=== PATIENT | female | born 1995 | race Caucasian/White ===

== ENCOUNTER 2019-03-04 04:07 | Emergency (ER) | payer OTHER ==
--- NOTE | 2019-03-04 04:13 | NUR ---
BIB BOYFRIEND, C/O PAIN IN HER STOMACH ACCORDING TO BOYFRIEND. PATIENT IS NON RESPONSIVE TO VERBAL COMMANDS BUT RESPONDS TO PAIN STIMULI.
[2019-03-04 04:29] LABS: BASOPHILS % (AUTO) 0.2 % (0.0-2.0); EOSINOPHILS % (AUTO) 0.1 % (0.0-6.0); HEMATOCRIT 39 % (33-45); HEMOGLOBIN 12.8 g/dL (11.5-14.8); LYMPHOCYTES # (AUTO) 1.1 /CMM (0.8-4.8); MEAN CORPUSCULAR HGB CONC 33 g/dl (31.0-36.0); MEAN CORPUSCULAR VOLUME 79 fL (82-100); MONOCYTES # (AUTO) 0.2 /CMM (0.1-1.30); MONOCYTES % (AUTO) 4.2 % (2.0-12.0); NEUTROPHILS # (AUTO) 3.8 /CMM (1.8-8.9); NEUTROPHILS % (AUTO) 74.5 % (43.0-81.0); PLATELET COUNT (AUTO) 152 /CMM (150-450); RED BLOOD CELL COUNT(AUTO) 4.99 MIL/uL (4.0-5.2)
[2019-03-04] MEDS ORDERED: IV NS 0.9% 1,000 ML BAG IV ONE ×2 (04:30→05:30)
[2019-03-04 04:50] LABS: CALCIUM, SERUM 8.7 mg/dL (8.5-10.1); CREATININE 0.8 mg/dL (0.6-1.3); POTASSIUM 3.8 mmol/L (3.5-5.1)
[2019-03-04] MEDS ORDERED: KETOROLAC TROMETHAMINE INJ 30 MG/ML VIAL IV ONE (05:30)
[2019-03-04] MEDS ORDERED: LORAZEPAM INJ 2 MG/ML VIAL IV ONE (05:30)
[2019-03-04] MEDS ORDERED: LORAZEPAM INJ 2 MG/ML VIAL ONE (05:37)
[2019-03-04] MEDS ORDERED: KETOROLAC TROMETHAMINE INJ 30 MG/ML VIAL ONE (05:37)
[2019-03-04 06:53] LABS: ALBUMIN 4.4 g/dL (3.4-5.0); BILIRUBIN,DIRECT 0.1 mg/dL (0.0-0.2); BILIRUBIN,TOTAL 0.3 mg/dL (0.2-1.0); TOTAL PROTEIN, SERUM 7.5 g/dL (6.4-8.2)
--- NOTE | 2019-03-04 07:13 | NUR ---
Patient discharged to home in stable condition vital signs stable. Written and verbal after care instructions given. Patient verbalizes understanding of instruction.IV removed. Catheter intact and site benign. Pressure and 4x4 applied to site. No bleeding noted pt. ambulatory with a steady gait, leaving with boyfriend.
[2019-03-04 07:18] VITALS: BP 115/20
== END 2019-03-04 07:20 | disposition home or self-care (01) ==
LOC: ER 04:11
DX: F10.129 Alcohol abuse with intoxication, unspecified (principal); Y90.6 Blood alcohol level of 120-199 mg/100 ml
CPT/HCPCS: 36415; 80048; 80076; 80307; 83690; 84702; 85025; 96374; 96375; 99283; J1885; J2060; J7030 ×2; G0480